=== PATIENT | female | born 1990 | race Caucasian/White ===

== ENCOUNTER 2020-08-14 23:57 | Inpatient (IN) | payer SELFPAY ==
[~2020-08-14] VITALS: Ht 170.2 cm; Wt 58.1 kg
[2020-08-15 00:48] LABS: BASOPHILS ABSOLUTE AUTO 0.03 K/mm3 (0.00-0.23); BASOPHILS PERCENT AUTO 0 % (0-2); EOSINOPHILS PERCENT AUTO 0 % (0-6); Hematocrit 40.3 % (33.0-51.0); Hemoglobin 13.2 g/dL (11.5-16.0); IMMATURE GRAN ABSOLUTE AUTO 0.01 K/mm3 (0.00-0.10); IMMATURE GRAN PERCENT AUTO 0 % (0-1); LYMPHOCYTES ABSOLUTE AUTO 0.87 K/mm3 (0.84-5.20); LYMPHOCYTES PERCENT AUTO 11 % (21-46); MONOCYTES ABSOLUTE AUTO 0.32 K/mm3 (0.16-1.47); MONOCYTES PERCENT AUTO 4 % (4-13); Mean Corpuscular HGB 28.5 pg (26.0-34.0); Mean Corpuscular HGB Conc 32.8 g/dL (31.5-36.5); Mean Corpuscular Volume 87 fL (80-100); Mean Platelet Volume 10.2 fL (9.1-12.4); NEUTROPHILS ABSOLUTE AUTO 6.55 K/mm3 (1.96-9.15); NEUTROPHILS PERCENT AUTO 84 % (41-73); Platelet Count 166 K/mm3 (150-400); RDW Coefficient Variation 12.9 % (11.7-14.2); RDW Standard Deviation 40.7 fL (35.1-46.3); Red Blood Cell Count 4.63 M/mm3 (3.80-5.20); White Blood Cell Count 7.78 K/mm3 (4.00-11.30)
[2020-08-15 01:43] LABS: Anion Gap 8 mmol/L (6-16); Blood Urea Nitrogen 12 mg/dL (8-24); Bun/Creatinine Ratio 18.3 (12.0-20.0); CO2, Blood 25 mmol/L (21-32); Calcium, Blood 9.4 mg/dL (8.5-10.1); Chloride, Blood 108 mmol/L (98-108); Creatinine, Blood 0.66 mg/dL (0.40-1.00); Glomerular Filtration Rate >60 (60-); Glucose, Blood 120 mg/dL (70-99); Potassium, Blood 3.7 mmol/L (3.5-5.5); Sodium, Blood 141 mmol/L (136-145)
[2020-08-15] MEDS ORDERED: PRENATAL TABLE1 EAC2 PO (04:58)
--- NOTE | 2020-08-15 06:32 | NUR ---
SUMMARY PT ADMITTED TO [address]Celeste PARADA RN MED PTFOR PAIN AND PT REPORTS NAUSEA IS BETTER.
[2020-08-15 09:14] LABS: Source, Urine Clean Catch
[2020-08-15 09:20] LABS: Bilirubin, Urine Neg (Neg); Blood, Urine Neg (Neg); Glucose Qualitative, Urine Neg (Neg); Ketones, Urine 4+ (Neg); Leukocyte Esterase, Urine Neg (Neg); Nitrite, Urine Neg (Neg); Protein, Urine 1+ (Neg); Urobilinogen, Urine NORM (Normal)
[2020-08-15 09:25] LABS: Appearance, Urine Clear (Clear); Color, Urine Yellow (P-Yellow)
--- NOTE | 2020-08-15 11:13 | NUR ---
PT HAD 350 ML GREEN EMESESIS HOOKED BACK UP TO NG TUBE/LIS. NOTIFIED IMAGING.
--- NOTE | 2020-08-15 17:17 | NUR ---
SUMMARY PT RESTING W/EYES CLOSED. VOMITED DURING AND AFTER SBFT. WAS HOOKED UP TO LIS AND NOTIFIED IMAGING AT TIME DONE. DRAINING GREEN THIN LIQUID. PT CONTINUED TO GAG AND HAVE DRY HEAVES AND SMALL AMOUNTS OF EMESIS DUE TO SENSATION OF NG TUBE IN THROAT. SPOKE TO DR LOBATO, ORDERS OBTAINED. PROVIDED SWABS FOR PATIENT COMFORT. CALL LIGHT IN REACH.
[2020-08-16 05:03] LABS: Hematocrit 40.5 % (33.0-51.0); Hemoglobin 12.8 g/dL (11.5-16.0); Mean Corpuscular HGB 28.3 pg (26.0-34.0); Mean Corpuscular HGB Conc 31.6 g/dL (31.5-36.5); Mean Corpuscular Volume 90 fL (80-100); Mean Platelet Volume 10.1 fL (9.1-12.4); Platelet Count 159 K/mm3 (150-400); RDW Coefficient Variation 13.4 % (11.7-14.2); Red Blood Cell Count 4.52 M/mm3 (3.80-5.20); White Blood Cell Count 9.53 K/mm3 (4.00-11.30)
[2020-08-16 05:18] LABS: Anion Gap 2 mmol/L (6-16); Blood Urea Nitrogen 7 mg/dL (8-24); Bun/Creatinine Ratio 9.8 (12.0-20.0); CO2, Blood 31 mmol/L (21-32); Calcium, Blood 8.5 mg/dL (8.5-10.1); Chloride, Blood 107 mmol/L (98-108); Creatinine, Blood 0.71 mg/dL (0.40-1.00); Glomerular Filtration Rate >60 (60-); Glucose, Blood 132 mg/dL (70-99); Magnesium, Blood 2.3 mg/dL (1.6-2.4); Potassium, Blood 4.3 mmol/L (3.5-5.5); Sodium, Blood 140 mmol/L (136-145)
--- NOTE | 2020-08-16 17:00 | NUR ---
SUMMARY NO ACUTE CHANGES T/O SHIFT. NG DRAINED 200 ML GREEN FLUID. MEDICATED PER ORDERS FOR PAIN AND NAUSEA T/O SHIFT. PT HAS RESTED MOST OF SHIFT W/EYES CLOSED. CALLS APPROPRIATELY. PLAN FOR ABDOMINAL XR IN AM.
[2020-08-17 05:02] LABS: Hematocrit 43.3 % (33.0-51.0); Hemoglobin 13.7 g/dL (11.5-16.0); Mean Corpuscular HGB 28.2 pg (26.0-34.0); Mean Corpuscular HGB Conc 31.6 g/dL (31.5-36.5); Mean Corpuscular Volume 89 fL (80-100); Mean Platelet Volume 9.9 fL (9.1-12.4); Platelet Count 173 K/mm3 (150-400); RDW Standard Deviation 42.7 fL (35.1-46.3); Red Blood Cell Count 4.85 M/mm3 (3.80-5.20); White Blood Cell Count 10.17 K/mm3 (4.00-11.30)
--- NOTE | 2020-08-17 05:47 | NUR ---
SHIFT SUMMARY PT RESTED WELL T/O NIGHT. AAOX4. NPO. DISCOMFORT CONTROLLED WITH 0.5MG IV DILAUDID. PT REPORTED NAUSEA INTERMITTENTLY T/O NIGHT, ZOFRAN GIVEN, NO EMESIS. NGT TO LIS WITH 400+cc DARK GREEN/BROWN OUT THIS SHIFT. IVF PER ORDERS. PT UP TO RESTROOM SBA FOR ASSISTANCE WITH LINES. NO ACUTE CHANGES OVER NIGHT. PT CURRENTLY RESTING IN BED WITH CALL LIGHT IN REACH.
--- NOTE | 2020-08-17 09:03 | NUR ---
08/17/20 0903 Renato Jewell 2GM ANCEF GIVEN IV AT [address] RENTERIA.
--- NOTE | 2020-08-17 11:55 | NUR ---
PT ARRIVED FROM PACU @ 1022, RECEIVED FROM [place]LTON KEN, PT STABLE AT THIS TIME, REORIENTED TO ROOM, POST OP VITALS STARTED AND STABLE, DENIES PAIN, DENIES N/V, DENIES SOB. LUNGS SLIGHTLY DIMINISHED IN LOWER LOBES BILATERALLY, EDU&ENC TCDB, ENC IS. WILL CONTINUE TO MONITOR
--- NOTE | 2020-08-17 17:00 | NUR ---
SHIFT SUMMARY SBO/LAPAROSCOPY W/ LYSIS OF ABD ADHESIONS POD0, A/OX4, VSS, TOLERATING SIPS/CHIPS DIET, DENIES N/T, DENIES SOB, INDEPENDENT TO BATHROOM, PAIN WELL CONTROLLED PER EMAR. WILL CONTINUE TO MONITOR AND REPORT TO ONCOMING NOC RN.
--- NOTE | 2020-08-18 08:05 | NUR ---
SHIFT SUMMARY POD#1. AAOX4. NPO. DISCOMFORT AT TOLERABLE LEVEL T/O NIGHT WITH ORDERED PAIN MEDS. NO NAUSEA/EMESIS. ABD INCISIONS WITH SCANT DRY SS DRAINAGE, NO INCREASE THIS SHIFT. NGT TO LIS, LARGE AMOUNTS OF CLEAR/GREEN OUT. SIPS + CHIPS. PT UP TO RESTROOM SBA TO ASSIST WITH LINES, TOLERATES WELL. PT RESTED WELL T/O NIGHT. REPORT TO DAY SHIFT RN. PT CURRENTLY IN BED WITH CALL LIGHT IN REACH.
[2020-08-18] MEDS ORDERED: Acetaminophen325 M1 PO (15:02)
[2020-08-18] MEDS ORDERED: ROXICODONE IR PO (15:09)
--- NOTE | 2020-08-18 15:48 | NUR ---
DISCHARGE SUMMARY A/O X4, VSS, AMBULATING, VOIDING, TOLERATING PO, PASSING FLATUS. IV DC'D W/ NO OTHER IV ACCESS DEVICES IN PLACE. DISCUSSED DISCHARGE CRITERIA AND PT REP BEING READY TO GO HOME. DISCUSSED HOME CARE INSTRUCTIONS W/ PT AND SO, DISCUSSED NEXT STEPS AND FOLLOW UP APPOINTMENTS, PROVIDED PT W/ HARD SCRIPTS FOR PAIN MEDICATIONS. PROVIDED PRINTED EDUCATION MATERIALS ON ALL TOPICS DISCUSSED. PT STATES SHE HAS NO FURTHER QUESTION, GAVE PT SURGICAL FLOOR AND DR LOBATO OFFICE NUMBER IF ANY QUESTIONS/CONCERNS ARISE. PT ESCORTED OUT VIA WC W/ ALL PERSONAL POSSESSIONS.
== END 2020-08-18 15:40 | disposition home or self-care (01) | DRG 337 ==
LOC: ER 23:57 → SURS 08-15 02:19
PROVIDERS: Student in an Organized Health Care Education/Training Program; Surgery; ADMIT Surgery
PROC: 0DNU4ZZ Release Omentum, Percutaneous Endoscopic Approach (ICD-10-PCS; principal; 2020-08-17 07:00)
PROC: 0DN84ZZ Release Small Intestine, Percutaneous Endoscopic Approach (ICD-10-PCS; 2020-08-17 07:00)
DX: K56.50 Intestinal adhesions [bands], unspecified as to partial versus complete obstruction (principal); Z20.828 Contact with and (suspected) exposure to other viral communicable diseases
CPT/HCPCS: 36415; 74018; 74177; 74250; 80048; 81025; 83735; 85025; 85027; 96374; 96375; 99284-25; A9270; J0330; J0690; J1170; J2250; J2270; J2370; J2405; J2704; J3010; J7030; Q9967; U0004

== ENCOUNTER → 2021-10-23 | Outpatient (CLI) | payer OTHER ==
[~2021-10-23] MED LIST: Acetaminophen325 M1 PO; PRENATAL TABLE1 EAC2 PO; ROXICODONE IR PO
[2021-10-27 15:08] LABS: HPV 16 Negative (Negative); HPV 18 Negative (Negative); HPV OTHER HR TYPES Negative (Negative)
== END | disposition home or self-care (01) ==
LOC: LAB SHORT 15:21
PROVIDERS: Obstetrics & Gynecology
DX: Z01.419 Encounter for gynecological examination (general) (routine) without abnormal findings (principal)
CPT/HCPCS: 87624; G0123

== ENCOUNTER → 2021-11-27 | Outpatient (CLI) | payer OTHER | END | disposition home or self-care (01) | LOC: LAB SHORT 08:00 → PLD 08:00 | DX: N84.0 Polyp of corpus uteri (principal) | CPT/HCPCS: 88305 ==

== ENCOUNTER → 2023-04-18 | Outpatient (CLI) | payer OTHER | LOC: LAB 14:19 → LAB SHORT 14:19 | DX: N39.0 Urinary tract infection, site not specified (principal) | CPT/HCPCS: 87086 ==